=== PATIENT | male | born 1955 | race Caucasian/White ===

== ENCOUNTER 2018-09-29 15:40 | Emergency (ER) | payer OTHER ==
[2018-09-29 16:35] VITALS: BP 148/106; PULSE 74; RESP 18; TEMP 97.2; O2SAT 98
[2018-09-29] MEDS ORDERED: PREDNISONE 20 MG TAB PO ONE (17:02)
[2018-09-29] MEDS ORDERED: PREDNISONE 20 MG TAB ONE (17:04)
== END 2018-09-29 17:22 | disposition home or self-care (01) | DRG 552 ==
LOC: ED 15:40
DX: M54.32 Sciatica, left side (principal)
CPT/HCPCS: 99282; A9270-GY